=== PATIENT | female | born 1960 | race Caucasian/White ===

== ENCOUNTER 2021-06-30 12:25 | Emergency (ER) | payer OTHER, SELFPAY ==
--- NOTE | 2021-06-30 | ECG_ITS ---
Test Reason : CHEST PAIN Blood Pressure : / mmHG Vent. Rate : 069 BPM Atrial Rate : 069 BPM P-R Int : 140 ms QRS Dur : 072 ms QT Int : 420 ms P-R-T Axes : 076 058 052 degrees QTc Int : 450 ms Normal sinus rhythm Normal ECG No previous ECGs available Referred By: Generic ED Physician Electronically Signed By:Timur Shepherd
--- NOTE | ~2021-06-30 | XR_ITS ---
EXAMINATION: XR CHEST CLINICAL INFORMATION: Chest pain, dyspnea, recent COVID exposure. COMPARISON: None TECHNIQUE: PA upright view of the chest was obtained. FINDINGS: No significant abnormality is noted involving the heart, lungs, mediastinum, bony thorax or soft tissues. XR/XR chest 1V IMPRESSION: Unremarkable examination.
[2021-06-30 12:44] VITALS: BP 120/58; PULSE 63; RESP 20; TEMP 36.1; O2SAT 97; BMI 27.4
== END 2021-06-30 14:20 | disposition left against medical advice (07) ==
PROVIDERS: Emergency Provider Emergency Medicine
DX: R07.9 Chest pain, unspecified (principal)
CPT/HCPCS: 71045; 93005; 99283; 99284